=== PATIENT | male | born 1965 | race Asian ===

== ENCOUNTER 2023-01-02 12:26 | Emergency (ER) | payer BC ==
[2023-01-02 12:51] VITALS: BMI 22.9
[2023-01-02] MEDS ORDERED: FAMOTIDINE 20 MG/50 ML IVPB 20 MG/50 ML MG IVPB ONE ×2 (13:00→13:03)
[2023-01-02] MEDS ORDERED: ONDANSETRON 4 MG/2 ML VIAL IVPUSH ONE (13:00)
[2023-01-02] MEDS ORDERED: SODIUM CHLORIDE 0.9% 500 ML INFUS.BAG IV ONE (13:00)
[2023-01-02] MEDS ORDERED: ONDANSETRON 4 MG/2 ML VIAL ONE (13:03)
[2023-01-02 13:19] LABS: HEMATOCRIT 51.4 % (35.4-49); HEMOGLOBIN 17.6 G/dL (11.7-16.9); MCH 30.3 pg (25.7-33.7); MCHC 34.3 g/dl (32.0-35.9); MEAN CELL VOLUME 88.2 fl (80-96); MEAN PLT VOLUME 9.1 fl (7.5-11.1); PLATELET COUNT 261.5 10^3/uL (134-434); RBC 5.83 10^6/uL (4.00-5.60); RDW 13.9 % (11.9-15.9)
[2023-01-02 13:27] LABS: BILIRUBIN,TOTAL 0.9 mg/dl (0.2-1); CALCIUM 9.9 mg/dl (8.5-10)
[2023-01-02 13:35] LABS: PLATELET ESTIMATE ADEQUATE
[2023-01-02] MEDS ORDERED: SODIUM CHLORIDE 1,000 ML IV STA (13:35)
[2023-01-02] MEDS ORDERED: MAG HYDROX/AL HYDROX/SIMETH -MYLANTA- ORAL SUSPENSION PO ONE (13:56)
[2023-01-02] MEDS ORDERED: MAG HYDROX/AL HYDROX/SIMETH 30 ML UNIT-DOSE CUP ONE (13:58)
[2023-01-02 14:37] VITALS: BP 134/92; PULSE 110; RESP 16; TEMP 98.6
== END 2023-01-02 14:40 | disposition home or self-care (01) ==
LOC: FER 12:26
PROC: 3E033GC Introduction of Other Therapeutic Substance into Peripheral Vein, Percutaneous Approach (ICD-10-PCS; principal; 2023-01-02)
PROC: 3E033GC Introduction of Other Therapeutic Substance into Peripheral Vein, Percutaneous Approach (ICD-10-PCS; 2023-01-02)
PROC: 3E0337Z Introduction of Electrolytic and Water Balance Substance into Peripheral Vein, Percutaneous Approach (ICD-10-PCS; 2023-01-02)
DX: R11.2 Nausea with vomiting, unspecified (principal); R19.7 Diarrhea, unspecified
CPT/HCPCS: 0241U-QW; 36415; 80053; 83690; 85027; 99284-25

== ENCOUNTER 2023-03-07 15:17 | Emergency (ER) | payer BC ==
[2023-03-07] MEDS ORDERED: DIPHTH,PERTUSS(ACELL),TET 0.5 ML DISP.SYRIN IM ONE ×2 (15:24→15:27)
[2023-03-07 15:30] VITALS: BP 140/99; PULSE 83; RESP 18; TEMP 98.7; BMI 22.9
== END 2023-03-07 15:36 | disposition home or self-care (01) ==
LOC: FER 15:17
PROC: 3E0234Z Introduction of Serum, Toxoid and Vaccine into Muscle, Percutaneous Approach (ICD-10-PCS; principal; 2023-03-07)
DX: S60.351A Superficial foreign body of right thumb, initial encounter (principal); W25.XXXA Contact with sharp glass, initial encounter; Y99.0 Civilian activity done for income or pay
CPT/HCPCS: 90471; 90715; 99283-25